=== PATIENT | male | born 1960 | race Caucasian/White ===

== ENCOUNTER 2017-04-06 09:35 | Emergency (ER) | payer BC ==
[2017-04-06 09:50] VITALS: BP 159/87
--- NOTE | 2017-04-06 15:02 | UC ---
Mikel Leung Angela, scribed for Azul Hall DO on 04/06/17 at 1110 . General HPI - HPI Summary HPI Summary: This pt is a 57 y/o male presenting to [facility] c/o cough x2 weeks. He notes his cough is productive but denies bloody sputum. He additionally c/o nasal congestion, sinus drainage, ear ache (more L>R). He describes his ear pain as fullness. He denies sore throat, fever, chills, rash, body aches. Pt is taking medications which helps him sleep at night. PMHx includes sleep apnea, pneumonia, HIV (under control), hodgkin's lymphoma, arthritis, seasonal allergies. - History of Current Complaint Chief Complaint: UCRespiratory Stated Complaint: CHEST/HEAD/NOSE COLD Time Seen by Provider: 04/06/17 11:03 Hx Obtained From: Patient Onset/Duration: Lasting Weeks, Still Present Timing: Constant Associated Signs & Symptoms: Positive: Cough, Other - POS: nasal congestion, sinus drainage, ear ache. NEG: sore throat, chills, rash, body aches. Negative : Fever - Allergy/Home Medications Allergies/Adverse Reactions: Allergies Allergy/AdvReac Type Severity Reaction Status Date / Time Codeine Allergy Nausea And Verified 04/06/17 09:47 Vomiting Penicillin G Allergy Rash Verified 04/06/17 09:47 PMH/Surg Hx/FS Hx/Imm Hx - Additional Past Medical History Additional PMH: PMHx: sleep apnea, arthritis, seasonal allergies Respiratory History: Pneumonia Cancer History: Other Other Cancer History: Hodgkin's lymphoma in 1999 Other History Of: HIV - Surgical History Surgical History: Yes Surgery Procedure, Year, and Place: 1980s LEFT KNEE SCOPE [place]. 1999 PORT PLACEMENT AND REMOVAL [facility] [place]. 2002 RT SHOULDER ROTATOR CUFF REPAIR [place]. 2011 LEFT ROTATOR [place]FF REPAIR [place] - Family History Known Family History: Negative: Cardiac Disease, Hypertension, Diabetes - Social History Alcohol Use: Daily Alcohol Amount: 2-3 DRINKS/WEEK Substance Use Type: None Smoking Status (MU): Never Smoked Tobacco Have You Smoked in the Last Year: No Review of Systems Constitutional: Negative Skin: Negative Eyes: Negative ENT: Ear Ache, Nasal Discharge, Sinus Congestion, Other - NEG: sore throat Respiratory: Cough Cardiovascular: Negative Gastrointestinal: Negative Genitourinary: Negative Motor: Negative Neurovascular: Negative Musculoskeletal: Negative Neurological: Negative Psychological: Negative All Other Systems Reviewed And Are Negative: Yes Physical Exam Triage Information Reviewed: Yes Appearance: Well-Appearing, No Pain Distress, Well-Nourished Vital Signs: Initial Vital Signs Temp 98.2 F 04/06/17 09:47 Pulse 94 04/06/17 09:47 Resp 16 04/06/17 09:47 BP 159/87 04/06/17 09:47 Pulse Ox 97 04/06/17 09:47 Vital Signs Reviewed: Yes Eyes: Positive: Conjunctiva Clear. Negative: Discharge ENT: Positive: Hearing grossly normal, TMs normal, Sinus tenderness, Other - Tenderness over the right maxillary sinus. Negative: Tonsillar swelling, Tonsillar exudate, Trismus, Muffled voice, Hoarse voice Neck exam: Normal Neck: Positive: Supple Respiratory: Positive: Lungs clear, No respiratory distress, No accessory muscle use, Other: - prolonged expiration at bl bases Cardiovascular: Positive: RRR, No Murmur Musculoskeletal Exam: Normal Neurological: Positive: Alert, Muscle Tone Normal Psychological Exam: Normal Psychological: Positive: Age Appropriate Behavior Skin Exam: Normal, Other - Warm, dry, normal color Course/Dx - Course Course Of Treatment: Medications reviewed this visit. High blood pressure noted likely due to pts condition. Pt was discharged home with an inhaler and Cefdinir. - Differential Dx - Multi-Symptom Provider Diagnoses: Sinusitis. Bronchospasm. Elevated blood pressure without diagnosis of hypertension Discharge - Discharge Plan Condition: Stable Disposition: HOME Prescriptions: Albuterol HFA INHALER* [Ventolin HFA Inhaler*] 2 puff INH Q4H PRN #1 mdi PRN Reason: Sob/Wheezing Cefdinir [Cefdinir 300 MG CAP] 300 mg PO BID 20 Days cap Cefdinir [Cefdinir 300 MG CAP] 300 mg PO BID #20 cap Patient Education Materials: Sinusitis (ED), Bronchospasm (ED) Referrals: Jim Pelayo MD [Primary Care Provider] - Additional Instructions: INHALED BRONCHODILATORS: You have received a prescription for an inhaled bronchodilator -- a medication which stimulates the airways in the lung to dilate. This improves the flow of air in asthma, bronchitis, and emphysema. These medicines have some similarity to adrenaline, and can cause similar side effects: shakiness, racing heart, and a sense of nervousness. These side effects decrease with time. Contact your doctor if these side effects are severe. Do not over-use the medicine. Too-frequent use of the inhaler may make it ineffective. Call your doctor if the inhaler is not controlling your symptoms at the prescribed doses. CEPHALOSPORINS: An antibiotic of the cephalosporin class has been prescribed. This type of antibiotic covers a wide variety of infections, including those of the skin, lungs, middle ear, and urinary tract. This antibiotic is somewhat similar to the penicillin family. In rare cases , a person who is allergic to penicillin will also be allergic to this medication. If you have had a severe allergic reaction to penicillin, and have not taken this antibiotic since that time, notify your doctor. Antibiotics which cover many germs ("broad spectrum" antibiotics) are more likely to cause diarrhea or "yeast" infections. Women prone to vaginal yeast problems may suffer an attack after taking this antibiotic. In infants, oral thrush (white spots "stuck" on the cheek) or yeast diaper rash may result. See your doctor if these problems occur. Call the doctor at once if you develop hives, itching, shortness of breath , or lightheadedness. ANYTIME YOU TAKE AN ANTIBIOTIC, IT IS IMPORTANT TO REPLENISH THE BODY'S SUPPLY OF "GOOD BACTERIA." YOU CAN GET GOOD BACTERIA FROM HIGH QUALITY CULTURED FOODS SUCH LOCAL YOGURT, SOUR KRAUT, SHANNAN JEANNETTE, NATURALLY FERMENTED PICKLES AND PROBIOTIC DRINKS. YOU CAN ALSO GET GOOD BACTERIA FROM A PROBIOTIC SUPPLEMENT. Your blood pressure was elevated at this visit, 159/87. That does not mean you have hypertension, it is probably due to your current condition. Please follow up with your primary care provider. The documentation as recorded by the Mikel gann Angela accurately reflects the service I personally performed and the decisions made by me, Azul Hall DO.
== END 2017-04-06 11:40 | disposition home or self-care (01) ==
LOC: UCEAST 09:35
DX: J32.9 Chronic sinusitis, unspecified (principal); J98.01 Acute bronchospasm; R03.0 Elevated blood-pressure reading, without diagnosis of hypertension
CPT/HCPCS: 99212; G0463

== ENCOUNTER 2018-06-18 12:36 | Emergency (ER) | payer BC ==
[2018-06-18 12:41] VITALS: BP 160/97
--- NOTE | 2018-06-18 12:55 | UC ---
Throat Pain/Nasal Osman HPI - HPI Summary HPI Summary: Patient presents to urgent care with 7 days progressive congestion, cough productive of green sputum, and shortness of breath with activity. Patient states she's also had a fever. Patient's been take DayQuil and NyQuil with improvement. Patient does have a history of recurrent sinus infections. Patient also HIV-positive with low viral load him on immunosuppressants. Patient has had a history of pneumonia in the past and was concerned because he' s not improving. Patient denies any body aches. No nausea vomiting no diarrhea. The patient with decreased energy and decreased by mouth. Patient states he does use CPAP machine. Patient's being followed by Dr. Head for his sinus congestion pt's medications reviewed this visit - History of Current Complaint Chief Complaint: UCGeneralIllness Stated Complaint: FLU-LIKE SYMPTOMS Time Seen by Provider: 06/18/18 12:54 Hx Obtained From: Patient Pain Intensity: 0 - Allergies/Home Medications Allergies/Adverse Reactions: Allergies Allergy/AdvReac Type Severity Reaction Status Date / Time codeine Allergy Nausea Verified 06/18/18 12:42 Penicillins Allergy Rash Verified 06/18/18 12:42 PMH/Surg Hx/FS Hx/Imm Hx Previously Healthy: Yes Other History Of: HIV - Surgical History Surgical History: Yes Surgery Procedure, Year, and Place: 1980s LEFT KNEE SCOPE [place]. 1999 PORT PLACEMENT AND REMOVAL [facility] [place]. 2002 RT SHOULDER ROTATOR CUFF REPAIR [place]. 2011 LEFT ROTATOR [place]FF REPAIR [place] - Family History Known Family History: Negative: Cardiac Disease, Hypertension, Diabetes - Social History Alcohol Use: Daily Alcohol Amount: 2-3 DRINKS/WEEK Substance Use Type: None Smoking Status (MU): Never Smoked Tobacco Have You Smoked in the Last Year: No Review of Systems All Other Systems Reviewed And Are Negative: Yes Constitutional: Positive: Fatigue Respiratory: Positive: Shortness Of Breath, Cough Is Patient Immunocompromised?: Yes - HIV - low viral load Physical Exam - Summary Physical Exam Summary: Vital Signs Reviewed: Yes A+Ox3, no distress Eyes: Conjunctiva Clear, MIRIAN. EOM intact and full ENT: Hearing grossly normal TM x 2 clear, turbinates inflammed and boggy. + PND mmoist, uvula midline, no exudate, no erythema Neck: Positive: Supple Respiratory: Positive: No respiratory distress, No accessory muscle use + coarse cough + exp wheeze + rhonci left base Cardiovascular: RRR nl s1, s2 no m/r CBT <2 sec abd soft + BS nt/nd no guarding, no distension Musculoskeletal Exam: BORRERO x 4 without difficulty Strength Intact, ROM Intact Neurological: Positive: Alert, + sensation throughout Psychological: Positive: Normal Response To Family Skin: Positive: no rash, no ecchymosis Triage Information Reviewed: Yes Vital Signs: Initial Vital Signs Temp 97.3 F 06/18/18 12:39 Pulse 90 06/18/18 12:39 Resp 20 06/18/18 12:39 BP 160/97 06/18/18 12:39 Pulse Ox 98 06/18/18 12:39 Diagnostics - Radiology No standard instances Radiology Interpretation Completed By: Radiologist - Patient Name: CHRISTIANA FUNES Medical Record#: [id number] Ordering Physician: Darlin Choi MD Acct.#: [id number] : 1960 Age: 58 Sex: M Location: [facility] Exam Date: 06/18/18 1302 ADM Status: REG ER Order Information: CHEST PA & LAT 2 VWS Accession Number: [id number] CPT: 32925 HISTORY: cough, fever, LLL rhonci COMPARISONS: August 22, 2015 VIEWS: 4: Frontal dual-energy and lateral views of the chest. FINDINGS: CARDIOMEDIASTINAL SILHOUETTE: The cardiomediastinal silhouette is normal. RICO: The rico are normal. PLEURA: The costophrenic angles are sharp. No pleural abnormalities are noted. LUNG PARENCHYMA: The lungs are clear. ABDOMEN: The upper abdomen is clear. There is no subphrenic gas. BONES AND SOFT TISSUES: No bone or soft tissue abnormalities are noted. OTHER: None. IMPRESSION: NO ACTIVE CARDIOPULMONARY DISEASE. <Electronically signed by Maged Willett MD in [place]> 06/18/18 1316 Dictated By: Maged Willett MD Dictated Date/Time: 1316 Transcribed Date/Time: 06/18/18 1315 Copy to: CC:Darlin Choi MD ; Jim Pelayo III, MD Imaging - [facility] Imaging - [facility] Imaging - [facility] [id number] [place] [id number] [place] [id number] ph ) ph ([phone]) ph ([phone]) This report is only to be considered final once signed by the Provider(s) as displayed in the "< Electronically Signed by >" field (s). Absence of a signature indicates the report is in a draft status and still needs to be finalized. In the event this document was created by someone other than the signing Provider, the individual initiating the document will be listed in the "Entered by:" or "Dictated by:" walker. of Re-Evaluation - Re-Evaluation First Eval Change: Improved - improved following neb wheeze and cough less Rx abx mdi pred hydrate secretion precaution humidify return precaution Throat Pain/Nasal Course/Dx - Course Course Of Treatment: Patient presents with 7 days progressive sinus congestion postnasal drip and cough. Patient states he's productive of green sputum. Patient blowing yellow secretion from his nose. Patient reports fevers. Patient has taken DayQuil and NyQuil with little improvement. Patient with a history of recurrent pneumonia. No known lung disease. No history of smoking. On exam vital signs are stable. Patient does have sinus congestion postnasal drip and coarse cough. Patient noted to have bronchitis left base. We'll give a DuoNeb chest x-ray reassess. Patient comfortable in agreement with plan. His patient will likely receive antibiotics given several weeks duration, fever , history of pneumonia, and immunocompromised state. Elevated BP - h/o recommend f/u - Differential Dx/Diagnosis Provider Diagnosis: Acute bronchitis, Rhinosinusitis Discharge - Sign-Out/Discharge Documenting (check all that apply): Patient Departure All imaging exams completed and their final reports reviewed: Yes - Discharge Plan Condition: Stable Disposition: HOME Prescriptions: Albuterol HFA INHALER* [Ventolin HFA Inhaler*] 2 puff INH Q4H PRN #1 mdi PRN Reason: wheeze DOXYcycline CAP(*) [DOXYcycline 100MG CAP(*)] 100 mg PO BID #20 cap Fluticasone NASAL SPRAY 50MCG* [Flonase NASAL SPRAY 50MCG*] 2 spray BOTH NARES DAILY #1 btl Inhaler, Assist Devices [Aerochamber Mv] 1 each PO Q4HR #1 spacer predniSONE TAB* [Deltasone TAB*] 50 mg PO DAILY #5 tab Patient Education Materials: Acute Bronchitis (ED) Referrals: Jim Pelayo MD [Primary Care Provider] - Additional Instructions: -Take antibiotics exactly as prescribed until gone - Take prednisone as prescribed until gone - Use your albuterol puffer - 2 puffs every 4 hours for the next 2 days - then as needed - Stay well hydrated - avoid excess caffeine and all alcohol - Eat regular, healthy meals - Humidify the air in the room where you sleep - boil water, run a hot steam shower, vaporizer, cups of water by heat register - Okay to take over the counter decongestant and cough medication - These infections are spread by secretions - do NOT share eating or drinking utensils - clean items you share with other people such as cell phones, computer mouse, TV remote, computer tablets,etc.. Once you have been antibiotics for 2 days, change your toothbrush and your pillowcase. -Contact your doctor to arrange a follow-up appointment this week. Call your doctor, return here or go to the emergency department with any questions or concerns - Billing Disposition and Condition Condition: STABLE Disposition: Home
[2018-06-18] MEDS ORDERED: Albuterol/Ipratropium NEB.SOL* Albuterol 2.5 MG/Ipratropium 0.5 MG 3 ML INH ONE (13:02)
== END 2018-06-18 13:50 | disposition home or self-care (01) ==
LOC: UCEAST 12:36
DX: J40 Bronchitis, not specified as acute or chronic (principal); J34.89 Other specified disorders of nose and nasal sinuses; D89.9 Disorder involving the immune mechanism, unspecified; Z21 Asymptomatic human immunodeficiency virus [HIV] infection status; Z87.01 Personal history of pneumonia (recurrent); Z88.0 Allergy status to penicillin; Z88.5 Allergy status to narcotic agent; Z99.89 Dependence on other enabling machines and devices
CPT/HCPCS: 71046; 99212; A9270-GY; G0463